=== PATIENT | female | born 1980 | race African-American/Black ===

== ENCOUNTER 2023-07-31 21:41 | Emergency (ER) | payer BC ==
[~2023-07-31] VITALS: Ht 167.6 cm; Wt 90.7 kg
[2023-07-31] MEDS ORDERED: CYTOMEL5 MCG PO (22:10)
[2023-07-31] MEDS ORDERED: SYNTHROID125 MCG PO (22:10)
== END 2023-08-01 00:34 | disposition home or self-care (01) ==
LOC: ER 21:42
DX: S60.222A Contusion of left hand, initial encounter (principal); S60.221A Contusion of right hand, initial encounter; S80.01XA Contusion of right knee, initial encounter; W18.39XA Other fall on same level, initial encounter; Y93.89 Activity, other specified; Y92.830 Public park as the place of occurrence of the external cause; Y99.9 Unspecified external cause status